=== PATIENT | female | born 2000 | race Hispanic/Latino ===

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

== ENCOUNTER 2019-12-13 17:13 | Outpatient (CLI) | payer OTHER ==
[~2019-12-13] VITALS: Ht 157.5 cm; Wt 94.7 kg
[2019-12-13] MEDS ORDERED: PRENTAB9 PO (17:29)
[2019-12-13 17:33] VITALS: BP 127/75
[2019-12-13 18:15] LABS: HEMATOCRIT 37.2 % (36.0-47.0); HEMOGLOBIN 11.8 g/dl (12.0-15.5); MEAN CORPUSCULAR HEMOGLOBIN 26.5 pg (27.0-33.0); MEAN CORPUSCULAR HGB CONC 31.7 g/dl (32.0-36.5); MEAN CORPUSCULAR VOLUME 83.6 fl (80.0-96.0); PLATELET COUNT, AUTOMATED 336 10^3/uL (150-450); RED BLOOD COUNT 4.45 10^6/uL (4.00-5.40); WHITE BLOOD COUNT 8.2 10^3/uL (4.0-10.0)
[2019-12-13 18:37] LABS: INR 0.92; PROTHROMBIN TIME 12.6 SECONDS (12.5-14.3)
[2019-12-13 19:13] VITALS: BP 132/72
== END 2019-12-13 20:22 | disposition home or self-care (01) ==
LOC: M LDO 17:13
PROVIDERS: ATTEND Registered Nurse
DX: O26.893 Other specified pregnancy related conditions, third trimester (principal); W54.1XXA Struck by dog, initial encounter; Z3A.39 39 weeks gestation of pregnancy

== ENCOUNTER 2019-12-17 06:14 | Inpatient (IN) | payer OTHER ==
[2019-12-17] VITALS (47 sets, daily range): BP systolic 89–148; BP diastolic 52–88
[~2019-12-17] VITALS: Ht 157.5 cm; Wt 93.3 kg
[~2019-12-17 06:14] MED LIST: PRENTAB9 PO
--- NOTE | 2019-12-17 07:05 | HPEPDOC ---
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: No pertinent history Past Medical History Surgical History: Denies/None Family History Significant Family History: No pertinent family hx Social History Marital Status: Family situation: Spouse/partner home Psychosocial History: No pertinent psych hx * Smoker: non-smoker Alcohol: Denies Drugs: denies Abuse Violence Screening Have you been hit/kicked/slapp: No Have you been sexually assault: No Imunizations Tdap status: current Influenza Status: current Allergies Coded Allergies: No Known Allergies (Unverified , 12/13/19) Medications Scheduled No.137/Iron/Folic Acd ( Vitamin Tablet) 1 Each Tablet, 1 TAB PO DAILY Physical Examination Physical Examination GENERAL: Alert and oriented times three. BREAST: . ABDOMEN: Gravid and non-tender to touch. FETUS: Is vertex VTX by sterile vaginal examination SVE fetus is vertex VTX by Rahul. HEART RATE: Regular rate and rhythm. LUNGS: Clear to auscultation CTA NO RHALS NO RONCHI EXTREMITIES: No edema. No clonus. Vital Signs/I&O Vital Signs Date Time Temp Pulse Resp B/P (MAP) Pulse Ox O2 Delivery O2 Flow Rate FiO2 12/17/19 06:33 97.5 82 18 143/72 (95) Pertinent Laboratoy Data Blood Type: O+ HIV: Negative Hepatitis B: Negative Rapid Plasma Reagin: Nonreactive Rubella: Immune Varicella: Nonreactive Chlamydia/Gonorrhea: Negative Group B Streptococcus: Negative Quad Screen Test: Negative Cystic Fibrosis: Negative Anatomy Ultrasound Placenta Location: Anterior Normal Anatomy: Yes Steroid Therapy Steroid Therapy: No Vaginal Examination Dilation: 7 cm Effacement: 100% Station: -3 Cervical Consistency: Soft Cervical Position: Anterior Presentation: Cephalic presentation Assessment Variability: Moderate Accelerations: Positive Decelerations: None Tocometer Contractions: Yes Frequency: regular, every 1-3 min. Duration: less than 60 seconds Strength: palpated as moderate Assessment/Plan Assessment 19year-old G1 para P0 at 39.5weeks Presents to Labor and Delivery Plan Admit and orient. 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 Diet: NPO Group B Streptococcus GBS negative Labs and intravenous (IV) per unit protocol. Counseled on Pitocin AUGMENTATION Lactated Ringers (LR): Bolus 1000 ML, PRE EPIDURAL then at 125mL/hr. Anticipate [normal spontaneous delivery . C-S as appropriate. Labor and Delivery Counseling REVIEWED VAGINAL DELIVERY WITH POSSIBLE NEED FOR VACUUM OR FORCEPS IF UNABLE TO ACCOMPLISH DELIVERY RE NEED OR FAILURE OF MATERNAL PUSHING RISK TO OPERATIVE DELIVERY MAY BE EPISIOTOMY NEED FOR REPAIR OF LACERATIONS CERVICAL LACERATIONS NEED FOR AUGMENTATION MAY BE REQUIRED AND RISKS ARE TACHYSYSTOLE UTERINE RUPTURE TACHYCARDIA, NEED FOR C/S FOR MEDICAL AND INDICATIONS WILL BE DISCUSSED WITH YOU PRIOR TO CS. RISK OF CS INCLUDE HEMORRHAGE INFECTION PERFORATION REOPERATION REMOTE BLOOD TRANSFUSION , REMOTE HYSTERECTOMY LACERATION OR ADMISSION TO [facility] EXPRESSED UNDERSTANDING . CATEGORY 1 STRIP SAFE TO PROCEED Hudson Calvillo MD Dec 17, 2019 07:05
[2019-12-17] MEDS: LR 1,000 ML IV SCH ×3 (07:32→23:32)
[2019-12-17] MEDS ORDERED: LACTATED RINGER'S 1000 ML IV ONE (07:45)
[2019-12-17 07:46] LABS: HEMOGLOBIN 12.4 g/dl (12.0-15.5); MEAN CORPUSCULAR HEMOGLOBIN 25.9 pg (27.0-33.0); MEAN CORPUSCULAR VOLUME 83.7 fl (80.0-96.0); PLATELET COUNT, AUTOMATED 343 10^3/uL (150-450); RED BLOOD COUNT 4.78 10^6/uL (4.00-5.40); WHITE BLOOD COUNT 13.9 10^3/uL (4.0-10.0)
[2019-12-17] MEDS ORDERED: FENTANYL 2MCG/ML ROPIVACAINE 0.2% IN 0.9% NACL 100ML IVBAG As Ordered ONE (08:25)
--- NOTE | 2019-12-17 10:06 | IPNPDOC ---
Obstetrical Progress Note Date of Service Dec 17, 2019 Subjective 19 yo at 39w5d admitted for active labor. She is now comfortable with her epidural. She has supportive family at the bedside. Objective Vital Signs Date Time Temp Pulse Resp B/P (MAP) Pulse Ox O2 Delivery O2 Flow Rate FiO2 12/17/19 08:31 82 18 131/68 (89) 12/17/19 06:33 97.5 AROM for clear fluid Assessment Heart Rate (FHR): 145 Variability: Moderate Accelerations: None Decelerations: Early Tocometer Contractions: Yes Frequency: other (Every 3-5 minutes) Sterile Vaginal Examination Dilation: 8 cm Effacement (%): 100% Station: -1, 0 (0) Cervical Consistency: Soft Postion/Presentation: Cephalic presentation Assessment and Plan Age: 19 : 1 Term: 0 Pre-term: 0 Abortions: 0 Livin EGA at Admission: 39 (+5) Weeks & Days 39w5d Group B Streptococcus: Negative Anticipate: Vaginal Delivery EILEEN KELLER CNM Dec 17, 2019 10:06
[2019-12-17] MEDS ORDERED: NALOXONE INJ 0.4MG/1ML VIAL (J2310 PER 1MG) IV PRN (10:45)
[2019-12-17] MEDS ORDERED: ONDANSETRON 4MG/2ML VIAL IV PRN (10:45)
[2019-12-17] MEDS ORDERED: EPIDURAL COMMENT XX SCH (10:45)
[2019-12-17] MEDS ORDERED: FENTANYL/ROPIVACAINE/NACL BAG 100 ML EPIDURAL SCH (10:45)
[2019-12-17] MEDS ORDERED: LACTATED RINGER'S 1000 ML IV PRN (10:45)
[2019-12-17] MEDS ORDERED: EPIDURAL/PCA KEYS XX PRN (10:45)
[2019-12-17] MEDS ORDERED: ePHEDrine SULFATE 25 MG/5 ML(5MG/ML) SYRINGE IV PRN (10:45)
[2019-12-17] MEDS ORDERED: diphenhydrAMINE 50MG/ML VIAL (J1200) IV PRN (10:45)
[2019-12-17] MEDS ORDERED: REFRIGERATOR IV KEYS XX PRN (10:45)
[2019-12-17] MEDS ORDERED: OXYTOCIN 30 UNITS IN 0.9% NaCl 500ML IV BAG (J2590) As Ordered ONE (14:44)
[2019-12-17] MEDS ORDERED: OXYTOCIN DRIP 30 UNITS in IV 1 EA IV SCH (15:15)
[2019-12-17 17:37] LABS: CORD GAS ABE V -4.5; CORD GAS HCO3 V 20.6 MEQ/L; CORD GAS O2 SAT V 79.9 %; CORD GAS PCO2 V 38.7 mmHg; CORD GAS PH V 7.345 UNITS; CORD GAS PO2 V 33.7 mmHg; CORD GAS SBC V 20.4 MEQ/L; CORD GAS TCO2 V 21.8 MEQ/L
[2019-12-17 17:40] LABS: CORD GAS HCO3 A 19.3 MEQ/L; CORD GAS O2 SAT A 82.1 %; CORD GAS PCO2 A 34.7 mmHg; CORD GAS PH A 7.362 UNITS; CORD GAS PO2 A 35.6 mmHg; CORD GAS TCO2 A 20.3 MEQ/L
[2019-12-17] MEDS ORDERED: ACETAMINOPHEN 500 MG TAB PO PRN (18:30)
[2019-12-17] MEDS ORDERED: IBUPROFEN 800 MG TAB PO PRN (18:30)
[2019-12-17] MEDS ORDERED: OXYTOCIN DRIP 30 UNITS in IV 1 EA IV ONE (18:30)
[2019-12-17] MEDS ORDERED: IBUPROFEN 600MG TAB PO PRN (18:30)
[2019-12-17] MEDS ORDERED: ACETAMINOPHEN TAB 650MG DOSE (2X325MG) PO PRN (18:30)
[2019-12-17] MEDS ORDERED: MEASLES,MUMPS,RUBELLA VACCINE INJ (MMR-II) (90707) SC SCH (18:30)
[2019-12-17] MEDS ORDERED: ANUSOL HC CREAM 30GM TOP PRN (18:30)
[2019-12-17] MEDS ORDERED: DIBUCAINE 1% OINTMENT 30GM TOP PRN (18:30)
[2019-12-17] MEDS ORDERED: METHYLERGONOVINE MALEATE 0.2 MG TAB PO PRN (18:30)
[2019-12-17] MEDS ORDERED: OXYTOCIN INJ 10 UNITS/ML VIAL (J2590) IV ONE (18:30)
[2019-12-17] MEDS ORDERED: MOM 30ML SUSPENSION UDC PO PRN (18:30)
[2019-12-17] MEDS ORDERED: DOCUSATE SODIUM 100 MG CAP PO PRN (18:30)
[2019-12-17] MEDS ORDERED: RHOGAM 300 MCG (1500 IU) INJ (J2790) IM SCH (18:30)
--- NOTE | 2019-12-17 18:46 | DNPDOC ---
[facility] Delivery Note Delivery Note DATE OF DELIVERY: 12/17/2019 PREDELIVERY DIAGNOSIS: 39.5 weeks' gestation and labor. POST DELIVERY DIAGNOSIS: Delivered. PROCEDURE: [Spontaneous vaginal delivery PROFESSOR OF GEOGRAPHY: Dr. Michelle CLARK ANESTHESIA: EPIDURAL. ESTIMATED BLOOD LOSS: 200 mL. FINDINGS: 7 pound 15 ounce FEMALE , Score 9/9, nuchal cord times X1 WITH HAND HOLDING CORD. DELIVERY SUMMARY: Patient is a 19-year-old 1 now para 1 who was admitted to labor and delivery for CONTRACTIONS NOW MORE INTENSE X 24 HOURS . HAD SPONTANEOUS VAGINAL DELIVERY OVER INTACT PERINEUM FEMALE INFANT WEIGHING 7 LBS 15 OZ , PLACENTA DELIVERED SPONTANEOUSLY INTACT UTERUS CONTRACTED DOWN WITH PITOCIN, EXAMINATION REVEALED ANTERIOR POSTERIOR AND LATERAL STERN COMPLETE. SPHINCTER TIGHT . Hudson Clark MD Dec 17, 2019 18:45
[2019-12-18 05:59] VITALS: BP 136/76
[2019-12-18 06:35] LABS: HEMATOCRIT 34.4 % (36.0-47.0); HEMOGLOBIN 10.9 g/dl (12.0-15.5); MEAN CORPUSCULAR HEMOGLOBIN 26.7 pg (27.0-33.0); MEAN CORPUSCULAR HGB CONC 31.7 g/dl (32.0-36.5); MEAN CORPUSCULAR VOLUME 84.1 fl (80.0-96.0); PLATELET COUNT, AUTOMATED 284 10^3/uL (150-450); RED BLOOD COUNT 4.09 10^6/uL (4.00-5.40)
[2019-12-18] MEDS: PRENATAL VITAMINS CHEWABLE TABLET PO SCH (09:34)
--- NOTE | 2019-12-18 16:27 | IPN ---
DAY #1 PROGRESS NOTE DATE: 12/18/2019 A 19-year-old 1, now para 1, admitted in spontaneous labor at 39 and 5 weeks of gestation. She had an epidural in place, delivered a live female infant, 7 pounds 15 ounces (3600 grams), Apgars of 9 and 9 at one and five minutes respectively. Cord was around the neck times one and the baby was holding the cord in her hand. This is the reason the baby had tachycardia. Arterial pH was 7.36, base access was -5.0, venous pH was 7.34, base access was -4.5. On the first day, we discussed phlebitis, cystitis, mastitis, endometritis, and cellulitis; diet, exercise, pain management, perineal, breast, and wound care. Presently her blood pressure is 136/76, respirations are 18, pulse 85, temperature is 97.7. The patient has planned on discharge tomorrow. Medications were dispensed at [place]. All questions were answered, a 20-minute discussion. The patient's admitting hemoglobin was 12.4, hematocrit 40.0 and platelets 343,000. The patient is and doing well. [facility]
[2019-12-18 18:00] VITALS: BP 138/80
[2019-12-19 06:00] VITALS: BP 127/78
--- NOTE | 2019-12-19 07:25 | IPNPDOC ---
Progress Note Date of Service: Dec 19, 2019 Day#: 2 Progress Note SUBJECT: 19-year-old 1, now para 1, admitted in spontaneous labor at 39 and 5 weeks of gestation. She had an epidural in place, delivered a live female infant, 7 pounds 15 ounces (3600 grams), Apgars of 9 and 9 at one and five minutes respectively. doing well day # 2. She has been ambulating, voiding spontaneously without issue and tolerating regular diet. Breast feeding without issue. Reports lochia is minimal . Patient is ambulating well. Reports some cramping with . Denies any pain. Voiding and stooling without difficulty. OBJECTIVE: VITAL SIGNS: Within normal limits, afebrile. Alert and oriented times three. normal work of breathing. Heart rate: Regular rate and rhythm Abdomen: Fundus firm at U-2. Soft, NTTP. ASSESSMENT: 19 yo status post uncomplicated spontaneous vaginal delivery after presenting in active labor , doing well on day 2. Vitals within normal limits, afebrile, hemodynamically stable with no evidence of infection. No S/S of anemia or pre, no SI/HI. PLAN: 1. Discharge to home today. 2. Tylenol and Motrin for pain. 3. Encourage breast feeding and ambulation. 4. Minipill for contraception for now 5. Routine PP visit in 6 weeks in clinic. 6. Discussed return precautions and contraception methods at length. VS, I&O, 24H, Fishbone Vital Signs/I&O Vital Signs Date Time Temp Pulse Resp B/P (MAP) Pulse Ox O2 Delivery O2 Flow Rate FiO2 12/18/19 18:00 97.2 85 18 138/80 (99) 97 Room Air Laboratory Data 24H LABS Laboratory Tests 2 12/18/19 06:21: Nucleated Red Blood Cells % (auto) 0.0 CBC/BMP Laboratory Tests 12/18/19 06:21 TANIA WINTER MD Dec 19, 2019 05:02
[2019-12-19] MEDS ORDERED: DIBU10OI TOP (07:41)
[2019-12-19] MEDS ORDERED: DOCU100C16 PO (07:41)
[2019-12-19] MEDS ORDERED: IBUP80TA PO (07:41)
[2019-12-19] MEDS: PRENATAL VITAMINS CHEWABLE TABLET PO SCH (08:04)
--- NOTE | 2019-12-20 07:11 | DS ---
DATE OF ADMISSION: 12/17/2019 DATE OF DISCHARGE: 12/19/2019 This lady is a 19-year-old 1, now para 1, who was admitted in spontaneous labor at 39 and 5 weeks of gestation, live- female infant, 7 pounds 15 ounces, 3600 grams, scores of 9 and 9 at one and five minutes, respectively. Arterial pH was 7.36, base excess -5.0, venous pH 7.34, base excess -4.5. We discussed phlebitis, cystitis, mastitis, endometritis, and cellulitis, diet, exercise, pain management, perineal, breast, and wound care. On discharge, her blood pressure is 127/78, respirations 17, pulse 78, temperature 98.0. Her admitting hemoglobin 12.4, hematocrit 40.0, and platelets were 343. Discharge hemoglobin 10.9, hematocrit 34.4, and platelets were 284. The rest of the examination is unremarkable. Normocephalic, atraumatic. Neck: Full range of motion. Pupils equal and reactive to light. Distal pulses are symmetric. No evidence of deep venous thrombosis (DVT), pulmonary embolus (PE), or superficial phlebitis. Chest is clear bilaterally to bases. No wheezes or rhonchi. No costovertebral angle (CVA) tenderness. Abdomen is soft. Four- quadrant bowel sounds are noted. Uterus 2 below. Lochia is moderate. No rashes, lesions, or pruritus. No arthralgia or myalgia. No complaint of joint pain. No complaints of cough, wheeze, shortness of breath, or dyspnea on exertion. No nausea, vomiting, diarrhea, or constipation. In summary, we have a term gestation, delivered a live- female infant. Plans are to pick up attendant medications at [place]. A 6-week checkup. All questions were answered. A 20-minute discussion. YULISSA
== END 2019-12-19 14:05 | disposition home or self-care (01) | DRG 807 ==
LOC: M LDO 06:14 → M LDI 07:03 → M OBS 19:51
PROVIDERS: ADMIT Obstetrics & Gynecology; ATTEND Obstetrics & Gynecology
PROC: 10E0XZZ Delivery of Products of Conception, External Approach (ICD-10-PCS; principal; 2019-12-17)
DX: O69.82X0 Labor and delivery complicated by other cord entanglement, without compression, not applicable or unspecified (principal); Z37.0 Single live birth; Z3A.39 39 weeks gestation of pregnancy